=== PATIENT | female | born 1990 | race Caucasian/White ===

== ENCOUNTER → 2023-07-14 10:17 | Outpatient (BNVA) | payer MEDICAID, SELFPAY | PROVIDERS: PCP Nurse Practitioner; Visit Provider Nurse Practitioner Family | DX: N92.0 Excessive and frequent menstruation with regular cycle (principal); R10.2 Pelvic and perineal pain; Z79.899 Other long term (current) drug therapy; Z13.6 Encounter for screening for cardiovascular disorders; K91.5 Postcholecystectomy syndrome; R59.0 Localized enlarged lymph nodes | CPT/HCPCS: 80053; 80061; 81003; 82306; 82670; 82672; 83036; 84439; 84443; 84481; 85025; 85651; 86140 ==

== ENCOUNTER 2023-07-22 11:05 | Outpatient (CLI) | payer MEDICAID, SELFPAY ==
--- NOTE | 2023-07-22 11:15 | US_ITS ---
WS: [id number] US transvaginal [id number] HISTORY: R59.0 - Localized enlarged lymph nodes COMPARISON: None available. Uterus: 8.3 cm x 4.6 cm x 3.8 cm. Normal size anteverted uterus. No fibroid or mass. Endometrium: 1.1 cm. Normal. Cervix is closed. Right ovary: 3.7 cm x 3.2 cm x 2.3 cm. Normal size and vascularity, no cystic or solid masses. Domina nt follicle 2.3 x 2.0 x 2.0 cm. Left ovary: 2.7 cm x 2.6 cm x 1.5 cm. Normal size and vascularity, no cystic or solid masses. No free fluid in the cul-de-sac. Small bilateral inguinal lymph nodes. IMPRESSION: Normal pelvic ultrasound.
== END 2023-07-22 11:06 | disposition home or self-care (01) ==
LOC: RAD 11:06
PROVIDERS: PCP Nurse Practitioner; Visit Provider Nurse Practitioner Family
DX: R59.0 Localized enlarged lymph nodes (principal); R10.2 Pelvic and perineal pain
CPT/HCPCS: 76830

== ENCOUNTER → 2023-08-13 14:31 | Outpatient (BNVA) | payer MEDICAID, SELFPAY | PROVIDERS: PCP Nurse Practitioner Family; Visit Provider Nurse Practitioner Family | DX: Z12.4 Encounter for screening for malignant neoplasm of cervix (principal) | CPT/HCPCS: 88175 ==

== ENCOUNTER → 2023-09-11 11:18 | Outpatient (BNVA) | payer MEDICAID, SELFPAY | PROVIDERS: PCP Nurse Practitioner Family; Visit Provider Nurse Practitioner Family | DX: N39.0 Urinary tract infection, site not specified (principal); R31.9 Hematuria, unspecified; Z87.440 Personal history of urinary (tract) infections | CPT/HCPCS: 81003; 88112 ==